=== PATIENT | male | born 2000 | race Asian ===

== ENCOUNTER 2020-10-22 11:31 | Emergency (ER) | payer MEDICAID ==
[2020-10-22] MEDS ORDERED: SODIUM CHLORIDE 0.9% 1,000 ML IV STA (11:49)
[2020-10-22] MEDS ORDERED: LORazepam 2 MG/ML VIAL IVP STA (11:49)
[2020-10-22] MEDS ORDERED: KETOROLAC 30 MG/ML VIAL IVP STA (11:49)
[2020-10-22] MEDS ORDERED: ONDANSETRON 4 MG/2 ML VIAL IVP STA (11:51)
[2020-10-22 11:57] LABS: BASOPHILS # (AUTO) 0.1 10^3/uL (0.0-0.1); BASOPHILS % (AUTO) 0.5 %; EOSINOPHILS # (AUTO) 0.1 10^3/uL (0.0-0.7); EOSINOPHILS % (AUTO) 0.8 %; HCT - HEMATOCRIT 45.4 % (42.0-52.0); HGB - HEMOGLOBIN 14.2 g/dL (14.0-18.0); LYMPHOCYTES # (AUTO) 4.4 10^3/uL (1.5-3.5); MEAN CORPUSCULAR HEMOGLOBIN 22.4 pg (27.0-31.0); MEAN CORPUSCULAR HGB CONC 31.3 g/dL (32.0-36.0); MEAN CORPUSCULAR VOLUME 71.7 fL (80.0-94.0); MEAN PLATELET VOLUME 11.3 fL (7.4-11.4); MONOCYTES # (AUTO) 0.6 10^3/uL (0.0-1.0); MONOCYTES % (AUTO) 5.7 %; NEUTROPHILS % (AUTO) 42.3 %; PLT - PLATELET COUNT 231 10^3/uL (130-450); RED BLOOD COUNT 6.33 10^6/uL (4.70-6.10); RED CELL DISTRIBUTION WIDTH 15.7 % (12.0-15.0); WHITE BLOOD COUNT 9.6 x10^3/uL (4.8-10.8)
[2020-10-22 12:10] LABS: INR 1.2 (0.8-1.2); PT - PROTHROMBIN TIME 13.2 secs (9.9-12.6)
[2020-10-22 12:11] LABS: ALBUMIN 4.8 g/dL (3.2-5.5); ALBUMIN/GLOBULIN RATIO 1.7 (1.0-2.2); BILIRUBIN,TOTAL 0.8 mg/dL (0.2-1.0); CALCIUM 8.9 mg/dL (8.5-10.3); CREATININE 0.9 mg/dL (0.6-1.2); POTASSIUM 3.2 mmol/L (3.5-5.0); TOTAL PROTEIN 7.7 g/dL (6.7-8.2)
[2020-10-22 12:18] LABS: D-DIMER 236.2 ng/mL (200.0-255.0)
--- NOTE | 2020-10-22 12:37 | XRAY Report ---
PROCEDURE: Chest 1 View X-Ray INDICATIONS: Chest Pain TECHNIQUE: One view of the chest was acquired. COMPARISON: None FINDINGS: Surgical changes and devices: None. Lungs and pleura: An incomplete inspiratory result is noted, with low lung volumes and crowding of t he vascular markings. No focal infiltrates are seen. No large pneumothorax or large pleural effusion can be seen. Mediastinum: Mediastinal contours appear normal. Heart size is normal. Bones and chest wall: No suspicious bony lesions. Overlying soft tissues appear unremarkable. IMPRESSION: Limited portable chest examination, without an acute abnormality identified. If there is strong clinical concern for a developing or new pulmonary process, please consider a shor t-term follow-up 2 view chest series, performed in deep inspiration. Reviewed by: Austyn Reid MD on 10/22/2020 11:35 AM CRISTY Approved by: Austyn Reid MD on 10/22/2020 11:35 AM CRISTY Station ID: [id number]
[2020-10-22] MEDS ORDERED: POTASSIUM CHLORIDE 20 MEQ TABLET PO STA (12:41)
--- NOTE | 2020-10-22 14:07 | ED Physician Documentation ---
History of Present Illness - Stated complaint Stated Complaint: CHEST PX/SOA - Chief complaint Chief Complaint: General - History obtained from History obtained from: Patient - Additonal information Additional information: Patient is brought to the emergency department by his cousin for chief complaint of "panic attack". Cousin states that the patient told him he felt as though he was having a panic attack, but then began to complain of chest pain and stated it was the worst panic attack he ever had. Cousin reports that the patient was partying last night and doing some drinking of alcohol, but may have taken some other drugshe is not sure. He states that the patient stopped drinking around midnight, and was able to sleep last night. He states that the patient's been hyperventilating and then passing out, and he is concerned about him. Patient states that he felt as though he was having a panic attack at first, but then felt that the symptoms were becoming more severe than his usual panic attack. He states that he does not have any abdominal pain. States that the chest pain feels like a spasm and that makes him feel like he wants to vomit. Patient denies any history of any medical problems. He did not take anything for his anxiety. He does admit to drinking quite heavily and also smoking a lot of marijuana last night. He states he finished this up around midnight 30. Denies any shaking. No new medications. No other complaints at this time. Review of Systems Ten Systems: 10 systems reviewed and negative Constitutional: reports: Reviewed and negative Eyes: reports: Reviewed and negative Ears: reports: Reviewed and negative Nose: reports: Reviewed and negative Throat: reports: Reviewed and negative Cardiac: reports: Chest pain / pressure Respiratory: reports: Dyspnea GI: reports: Nausea, Vomiting : reports: Reviewed and negative Skin: reports: Reviewed and negative Musculoskeletal: reports: Reviewed and negative Neurologic: reports: Reviewed and negative Psychiatric: reports: Anxiety Endocrine: reports: Reviewed and negative Immunocompromised: reports: Reviewed and negative PD PAST MEDICAL HISTORY - Past Medical History Psych: Anxiety - Present Medications Home Medications: Ambulatory Orders Medication Instructions Recorded Confirmed hydrOXYzine HCL [Hydroxyzine HCl] 1 - 2 tab PO DAILY PRN 10/22/20 10/22/20 - Allergies Allergies/Adverse Reactions: Allergies Allergy/AdvReac Type Severity Reaction Status Date / Time No Known Drug Allergies Allergy Verified 10/22/20 11:49 - Social History Does the pt smoke?: Yes Smoking Status: Current every day smoker Does the pt drink ETOH?: Yes ETOH Use: Liquor Does the pt have substance abuse?: Yes Substance Use and Type: Marijuana PD ED PE NORMAL - Vitals Vital signs reviewed: Yes - General General: Other (The patient is severely anxious, and keeps holding his breath and losing consciousness. However, he is able to be aroused and when distracted by talking, he calms down and is able to speak.) - HEENT HEENT: Atraumatic, PERRL, EOMI, Moist mucous membranes - Neck Neck: Supple, no meningeal sign - Cardiac Cardiac: RRR, No murmur, Strong equal pulses - Respiratory Respiratory: No respiratory distress, Clear bilaterally - Abdomen Abdomen: Soft, Non tender, Non distended - Derm Derm: Normal color, Warm and dry, No rash - Extremities Extremities: No deformity, No edema, No calf tenderness / cord - Neuro Neuro: Alert and oriented X 3, golf course keeper 2-12 intact, Normal speech - Psych Psych: Normal mood, Normal affect Results - Vitals Vitals: Vital Signs - 24 hr 10/22/20 10/22/20 10/22/20 11:34 14:08 14:24 Temperature 36.7 C Heart Rate 101 H 81 72 Respiratory 18 13 17 Rate Blood Pressure 128/55 L 111/62 126/79 O2 Saturation 99 100 99 Oxygen O2 Source Room air - EKG (time done) 1138 Rate: Rate (enter#) (97) Rhythm: NSR, LAE [place]: Normal Intervals: Prolonged MA QRS: Normal Ischemia: Normal ST segments, Non specific changes Compare to prior EKG: Old EKG unavailable Computer interpretation: Agree with computer - Labs Labs: Laboratory Tests 10/22/20 10/22/20 10/22/20 11:49 11:49 11:49 WBC 9.6 RBC 6.33 H Hgb 14.2 Hct 45.4 MCV 71.7 L MCH 22.4 L MCHC 31.3 L RDW 15.7 H Plt Count 231 MPV 11.3 Neut # (Auto) 4.0 Lymph # (Auto) 4.4 H [place] # (Auto) 0.6 Eos # (Auto) 0.1 Baso # (Auto) 0.1 Absolute Nucleated RBC 0.00 Nucleated RBC % 0.0 PT INR D-Dimer Sodium 141 Potassium 3.2 L Chloride 106 Carbon Dioxide 22 Anion Gap 13.0 BUN 18 Creatinine 0.9 Estimated GFR (MDRD) 107 Glucose 187 H Calcium 8.9 Total Bilirubin 0.8 AST 23 ALT 26 Alkaline Phosphatase 58 Troponin I High Sens < 2.3 L Total Protein 7.7 Albumin 4.8 Globulin 2.9 Albumin/Globulin Ratio 1.7 Lipase 27 Urine Opiates Screen Ur Oxycodone Screen Urine Methadone Screen Ur Propoxyphene Screen Ur Barbiturates Screen Ur Tricyclics Screen Ur Phencyclidine Scrn Ur Amphetamine Screen U Methamphetamines Scrn U Benzodiazepines Scrn Urine Cocaine Screen U Cannabinoids Screen 10/22/20 10/22/20 11:57 14:25 WBC RBC Hgb Hct MCV MCH MCHC RDW Plt Count MPV Neut # (Auto) Lymph # (Auto) [place] # (Auto) Eos # (Auto) Baso # (Auto) Absolute Nucleated RBC Nucleated RBC % PT 13.2 H INR 1.2 D-Dimer 236.2 Sodium Potassium Chloride Carbon Dioxide Anion Gap BUN Creatinine Estimated GFR (MDRD) Glucose Calcium Total Bilirubin AST ALT Alkaline Phosphatase Troponin I High Sens Total Protein Albumin Globulin Albumin/Globulin Ratio Lipase Urine Opiates Screen NEGATIVE Ur Oxycodone Screen NEGATIVE Urine Methadone Screen NEGATIVE Ur Propoxyphene Screen NEGATIVE Ur Barbiturates Screen NEGATIVE Ur Tricyclics Screen NEGATIVE Ur Phencyclidine Scrn NEGATIVE Ur Amphetamine Screen NEGATIVE U Methamphetamines Scrn NEGATIVE U Benzodiazepines Scrn NEGATIVE Urine Cocaine Screen NEGATIVE U Cannabinoids Screen POSITIVE H PD MEDICAL DECISION MAKING - ED course Complexity details: reviewed results, re-evaluated patient, considered differential, d/w patient, d/w family ED course: The patient was very anxious upon arrival in the emergency department, and some of the history was taken from his cousin, who reported that the patient had been at least drinking and doing marijuana but potentially doing other drugs to. However, the patient later reported doing only marijuana and alcohol, which he took until about 0030 this morning. Patient's EKG did not show any evidence of ischemia. His monitor reading showed slight tachycardia but otherwise normal vital signs. Patient was given a liter of IV fluid and a dose of Ativan and was worked up with laboratory studies, which were unremarkable, With the exception of mild hypokalemia. On reevaluation, the patient is much more calm and I discussed with him that his work-up is been negative. I do not know exactly what caused his symptoms today, but I have advised him to rest at home and to avoid heavy use of alcohol and marijuana in the future. We have discussed the usual indications for return. Departure - Departure Disposition: 01 Home, Self Care Clinical Impression: Anxiety Alcohol withdrawal Qualifiers: Complication of substance-induced condition: uncomplicated Qualified Code(s): F10.230 - Alcohol dependence with withdrawal, uncomplicated Condition: Stable Instructions: ED Withdrawal Alcohol, ED Panic Attack Discharge Date/Time: 10/22/20 14:40
[2020-10-22 14:25] VITALS: BP 126/79
[2020-10-22 14:35] LABS: MUDS CUTOFF CONCENTRATIONS CUTOFF CONC BELOW:
[2020-10-22 14:49] LABS: AMPHETAMINE SCREEN,URINE NEGATIVE (NEGATIVE); BARBITURATE SCREEN,UR NEGATIVE (NEGATIVE); BENZODIAZEPINES SCREEN, URINE NEGATIVE (NEGATIVE); COCAINE SCREEN URINE NEGATIVE (NEGATIVE); METHADONE SCREEN, URINE NEGATIVE (NEGATIVE); METHAMPHETAMINES SCREEN, URINE NEGATIVE (NEGATIVE); OPIATE SCREEN, URINE NEGATIVE (NEGATIVE); OXYCODONE SCREEN, URINE NEGATIVE (NEGATIVE); PROPOXYPHENE SCREEN, URINE NEGATIVE (NEGATIVE); THC CANNABINOID SCREEN, URINE POSITIVE (NEGATIVE); TRICYCLIC ANTIDEPRESSANT,URINE NEGATIVE (NEGATIVE)
== END 2020-10-22 14:40 | disposition home or self-care (01) ==
LOC: ED 11:31
DX: F41.9 Anxiety disorder, unspecified (principal); F10.230 Alcohol dependence with withdrawal, uncomplicated; E87.6 Hypokalemia; F17.200 Nicotine dependence, unspecified, uncomplicated
CPT/HCPCS: 36415; 71045; 80053; 80306; 83690; 84484; 85025; 85379; 85610; 93005; 96361; 96374; 96375; 99284; A9270; J2060